=== PATIENT | male | born 1935 | race African-American/Black ===

== ENCOUNTER → 2016-08-29 | Outpatient (CLI) | payer OTHER, BC ==
[~2016-08-29] MED LIST: ACETAMINOPHEN325 M1 PO; ACTOS15 MG PO; ALBUTEROL2.5 MG/31 IH; ALLOPURINOL 10100 M1 PO; AMARYL2 MG PO; AMOXICILLIN 50500 M1 PO; AMOXICILLIN 50500 MG PO; APAP650 GT; ASA5UEC PO; ATENOLOL 50 MG50 M1 PO; ATENOLOL 50MG T50 M1 PO; AUGMENTIN 500-1 EACH PO; AUGMENTIN 875875 MG PO; AVELOX; AVELOX 400 MG400 MG PO; BREO ELLIPTA 11 EACH IH; BROVANA15 MCG/2 M IH; CARDIZEM SR 60M60 MG PO; CARDIZEM60 MG PO; CEFTIN 250250 MG/52 PO; CEFUROXIME250 MG PO; CIPROFLOXACIN500 M1 PO; CLARITIN10 MG PO; COLACE100 MG PO; COLCHICINE 0.60.6 M1 PO; COLCHICINE0.6 MG PO; COSOPT OCUMETER10 ML OP; COUMADIN 5 MG TA5 M1 PO; DEMADEX20 MG PO; DIGOXIN250 MCG PO; DOCUSATE CALCI240 MG PO; DOXYCYCLINE 10100 MG PO; DUONEB 2.5-0.5 M3 ML INH; FLOMAX PO; FLONASE16 GM NS; HYTRIN 5 M5 MG/1 CA1 PO; INDOMETHACIN 2525 MG PO; IRON325 PO; KLOR-CON20 MEQ PO; LASIX 40 MG TAB40 M2 PO; LEVAQUIN 250 M250 MG PO; LEVAQUIN 500 M500 M2 PO; LEVEMIR100 UNIT/1 SUBQ; LISINOPRIL20 MG PO; LISINOPRIL5 MG PO; LOPERAMIDE 2 MG2 M1 PO; LOPRESSOR25 PO; MEDROLDOSEPACK PO; MUCINEX600 MG PO; MUCUS RELIEF600 MG PO; NITROGLYCERIN0.4 MG SUBLING; NITROQUICK0.4 MG SL; NON-ASPIRIN PA325 MG PO; NORCO 5-325 TA1 EACH PO; OCUVITE TABLET1 EAC1 PO; OXYBUTYNIN 5 MG5 M1 PO; PRAVASTATIN SOD40 MG PO; PREDNISONE 10 M10 M1 PO; PREDNISONE 10 M10 MG PO; PREDNISONE 20 M20 MG PO; PREDNISONE10 MG PO; PREDNISONE50 MG PO; PROAIR HFA8.5 GM IH; PULMICORT FLEX90 MCG; PULMICORT0.25 MG/2 IH; SENEXON8.6 MG PO; SIMVASTATIN80 MG PO; SORINE 80 MG TA80 M1 PO; SPIRIVA INH; SYMBICORT160 MCG/4. INH; TRAVATAN Z2.5 ML OPHTHALMIC; UNICOMPLEX M TA1 TA1 PO; VERAPAMIL HCL240 M1 PO; VITAMIN D 5050000 I1 PO; VYTORIN 10-401 EACH PO; ZPAK PO; ZYVOX600 MG PO; torsemide PO
== END ==
LOC: CAT 09:29
DX: R91.1 Solitary pulmonary nodule (principal); R06.02 Shortness of breath; R06.00 Dyspnea, unspecified

== ENCOUNTER 2016-11-04 09:28 | Inpatient (IN) | payer OTHER, BC ==
[~2016-11-04] VITALS: Ht 170.2 cm; Wt 95.3 kg
--- NOTE | ~2016-11-04 | EKG ---
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: joceline cameron : 1935 Requested By: Thad Lemus Order Number: [id number] MD: Ganesh Hadley Measurements Intervals [place] Rate: 115 P: PA: QRS: -3 QRSD: 94 T: 102 QT: 361 QTc: 500 Interpretive Statements Atrial fibrillation Premature ventricular complexes Nonspecific repol abnormality, diffuse leads Compared to ECG 08/04/2016 16:56:36 Ventricular premature complex(es) now present Electronically Signed On 11-05-2016 8:28:58 CDT by Ganesh Hadley [email or web address] <ELECTRONICALLY SIGNED> By: Ganesh Hadley MD, [facility] 11/05/16 0828 9 9 Ganesh Hadley MD, [facility] /EPI
--- NOTE | ~2016-11-04 | HC ---
[facility] [place] [address] CONSULTATION Name: RICHAR CARTER Room #: 427-P [facility] IN M.R.#: [id number] Admission: 11/04/16 Attend Phys: Rey Blair DO Discharge: Date of : 37 Report #: [id number] THIS REPORT FOR: //name// CC: Rey Linton DATE OF SERVICE: 11/04/2016 ATTENDING PHYSICIAN: Dr. Blair. REASON FOR CONSULTATION: Chronic kidney disease. HISTORY OF PRESENT ILLNESS: The patient known to our service. I believe he has been seen in our office and has also been seen several times in the hospital. He has longstanding diabetes, hypertension, chronic kidney disease and a creatinine usually running 2 to 2.5 more or less. He presents with an acute gouty attack and some dry heaves. Creatinine is up to 2.8. PAST MEDICAL HISTORY: Longstanding diabetes, longstanding hypertension, chronic atrial fibrillation, previous CO, decreased left ventricular ejection fraction of 35% to 40%, for BPH has previously been on Flomax and may or may not have had prior proteinuria. HOME MEDICATIONS: As listed include diltiazem 90 mg three times daily, Levemir insulin, lisinopril 5 mg daily, metoprolol tartrate 50 mg b.i.d., pravastatin 40 mg daily, multiple vitamins. FAMILY HISTORY: Apparently has had brother on dialysis. SOCIAL HISTORY: Lives at home with family. No cigarettes or alcohol. REVIEW OF SYSTEMS: GENERAL: He has been doing fairly well. EYES: Vision has been off, but he cannot really be clear about where it is. ENT: Hearing okay. Denies mouth ulcers. ENDOCRINE: Positive for the diabetes. RESPIRATORY: Does get somewhat easily short-winded. He does have home oxygen as needed. CARDIOVASCULAR: Chronic atrial fibrillation, but no chest pain. GASTROINTESTINAL: Dry heaves, but no actual diarrhea or vomiting. GENITOURINARY: Stream fair. No dysuria. NEUROLOGIC: Denies seizure or stroke. SKELETAL: He has got a swollen, tender left knee. PHYSICAL EXAMINATION: GENERAL: Reasonably alert, well-appearing gentleman, giving a recent history. [facility] [address] [place] [address] CONSULTATION Name: RICHAR CARTER Room #: 427-P [facility] IN M.R.#: [id number] Admission: 11/04/16 Attend Phys: Rey Blair DO Discharge: Date of : 37 Report #: [id number] SKIN: Unremarkable. SKELETAL: Well-developed, well-nourished. EYES: Extraocular movements full. Vision intact. Mucous membranes slightly dry. NECK: Supple, no carotid bruits. CHEST: Shows clear breath sounds. HEART: Irregular. ABDOMEN: Soft and nontender. EXTREMITIES: Again showing swollen, tender left knee. LABORATORY DATA: The creatinine was up to 2.8. Creatinine when last in the hospital was 2.6 and that was 3 or 4 months. ASSESSMENT AND PLAN: 1. Chronic kidney disease. He has progressive chronic kidney disease and acute component possibly might require a little bit of IV fluids. I will check urinalysis, urine protein for completeness. I believe he is otherwise having workup in the past. 2. Acute arthritis of the left knee. He has had a history of gout previously this is likely gouty, he is being treated for that. 3. Diabetes mellitus. 4. Chronic atrial fibrillation. 5. Longstanding hypertension. <ELECTRONICALLY SIGNED> By: Raad Savage MD 11/06/16 0832 [id number] Norm Early MD /nt
--- NOTE | ~2016-11-04 | HC ---
[facility] [place] [address] CONSULTATION Name: RAULRICHAR MANE Room #: 427-P [facility] IN M.R.#: [id number] Admission: 11/04/16 Attend Phys: Rey Blair DO Discharge: Date of : 37 Report #: [id number] THIS REPORT FOR: //name// CC: Rey Linton CHIEF COMPLAINT: Left knee pain. HISTORY OF PRESENT ILLNESS: This is an 81-year-old gentleman who was admitted through the emergency room with severe knee and apparently toe pain. He has a history of gout and was subsequently admitted for management of this. He did receive some Solu-Medrol in the emergency room as well as was started on colchicine. He has improved somewhat; however, he continues to have significant issues. PAST MEDICAL HISTORY: Significant for diabetes, history of an RI in 1994, coronary artery disease with angioplasty in 1994, atrial fibrillation, vitamin D deficiency, gout, chronic respiratory failure and COPD, combined CHF, pulmonary and essential hypertension, chronic kidney disease, benign prostatic hypertrophy and glaucoma. SOCIAL HISTORY: Negative for tobacco use. Significant for alcohol use. REVIEW OF SYSTEMS: As above. PHYSICAL EXAMINATION: The left lower extremity notes limited motion through the left knee due to pain. He does have a slight effusion there. His left great toe has slightly limited motion, although he states much improved. There is no edema there. IMPRESSION: Gout, left knee. PLAN: The patient was provided with a Depo-Medrol injection, 2 mL of Depo-Medrol and 5 mL of lidocaine, under sterile conditions by my physician's assistant shift supervisor, Anais Forte. <ELECTRONICALLY SIGNED> By: Kash Gregory MD 11/07/16 1105 [id number] Kash Gregory MD /nt
[2016-11-04 09:28] VITALS: BP 158/87
[~2016-11-04 09:28] MED LIST changes: -CEFTIN 250250 MG/52 PO; -COLCHICINE0.6 MG PO
[2016-11-04 10:45] LABS: HEMOGLOBIN 11.4 gm/dL (14.0-18.0); MCH 31.8 pg (26.0-34.0); MCHC 34.6 g/dL (28.0-37.0); MCV 91.8 fL (80.0-100.0); PLATELET COUNT 194 thou/uL (150-400); RBC 3.59 mil/uL (4.50-6.00); RDW 15.1 % (10.5-14.5); WBC 11.9 thou/uL (4.0-11.0)
[2016-11-04 10:47] LABS: URINE BILIRUBIN NEGATIVE (Negative); URINE BLOOD 3+ (Negative); URINE COLOR YELLOW; URINE GLUCOSE-RANDOM* NEGATIVE (Negative); URINE KETONES NEGATIVE (Negative); URINE LEUKOCYTES-REFLEX TRACE (Negative); URINE PROTEIN (DIPSTICK) TRACE (Negative); URINE SPECIFIC GRAVITY 1.025 (1.003-1.035); URINE UROBILINOGEN 0.2 E.U./dl (0.2-1.0)
[2016-11-04 10:48] LABS: MANUAL DIFF YES
[2016-11-04 10:57] LABS: ANION GAP 3 mmol/L (7-16); BUN 49 mg/dL (7-18); CALCIUM 8.9 mg/dL (8.5-10.1); CHLORIDE 99 mmol/L (98-107); CO2 34 mmol/L (21-32); CREATININE 2.8 mg/dL (0.6-1.3); GLUCOSE 155 mg/dL (70-99); POTASSIUM 3.3 mmol/L (3.5-5.1); SODIUM 136 mmol/L (136-145)
[2016-11-04 11:00] LABS: INR 1.8; PROTIME 18.2 Seconds (9.3-11.4)
[2016-11-04 11:01] LABS: SQUAMOUS >10 Many /LPF (0-3)
[2016-11-04 11:02] LABS: HYALINE CASTS 0-3 Few /LPF (None Seen)
[2016-11-04 11:03] LABS: URINE WBC-REFLEX 6-15 Few /HPF (0-5)
[2016-11-04 11:04] LABS: CRYSTALS None Seen /LPF (None Seen); URINE RBC >20 Many /HPF (0-2)
[2016-11-04 11:07] LABS: ALBUMIN 3.4 g/dL (3.4-5.0); ALKALINE PHOSPHATASE 76 U/L (46-116); NT-PRO BRAIN NAT PEPTIDE 6878 pg/mL (<300); SGOT 12 U/L (15-37); SGPT 13 U/L (30-65); TOTAL BILIRUBIN 0.7 mg/dL (<0.1-1.0); TOTAL PROTEIN 8.3 g/dL (6.4-8.2); TROPONIN-I < 0.04 ng/mL (<0.04-0.07); URIC ACID* 12.4 mg/dL (2.6-7.2)
[2016-11-04 11:16] LABS: ABSOLUTE NEUTROPHILS 8.3 thou/uL (1.4-8.2); METAMYELOCYTES 1 %; TOTAL CELL COUNT 100
[2016-11-04 11:17] LABS: ANISOCYTOSIS SLIGHT
[2016-11-04 17:06] VITALS: BP 159/91
[2016-11-04 18:10] VITALS: BP 149/95
[2016-11-04 20:00] VITALS: BP 109/69; BP 147/93
[2016-11-05 04:52] VITALS: BP 153/111
[2016-11-05 05:32] LABS: HEMATOCRIT 34.2 % (42.0-52.0); HEMOGLOBIN 11.5 gm/dL (14.0-18.0); MCH 29.2 pg (26.0-34.0); MCHC 33.5 g/dL (28.0-37.0); MCV 87.1 fL (80.0-100.0); PLATELET COUNT 202 thou/uL (150-400); RBC 3.93 mil/uL (4.50-6.00); RDW 15.7 % (10.5-14.5); WBC 11.3 thou/uL (4.0-11.0)
[2016-11-05 05:57] LABS: MANUAL DIFF YES
[2016-11-05 06:21] LABS: CALCIUM 9.1 mg/dL (8.5-10.1); CREATININE 2.3 mg/dL (0.6-1.3); POTASSIUM 3.8 mmol/L (3.5-5.1)
[2016-11-05 06:55] LABS: TOTAL CELL COUNT 100
[2016-11-05 06:56] LABS: ABSOLUTE NEUTROPHILS 8.8 thou/uL (1.4-8.2)
[2016-11-05 07:14] VITALS: BP 165/99
[2016-11-05 12:28] LABS: % SATURATION 10 % (20-39); IRON 21 ug/dL (65-175); TIBC 220 ug/dL (250-450); UIBC 199 ug/dL
[2016-11-05 15:17] VITALS: BP 165/96
[2016-11-05 20:00] VITALS: BP 150/81
[2016-11-06 00:10] LABS: URINE CREATININE-RANDOM* 151.2 mg/dL (Not Estab.); URINE PROTEIN-RANDOM* 38.8 mg/dL (Not Estab.)
[2016-11-06 04:55] VITALS: BP 124/77
[2016-11-06 05:45] LABS: HEMATOCRIT 31.7 % (42.0-52.0); HEMOGLOBIN 10.9 gm/dL (14.0-18.0); MCH 31.6 pg (26.0-34.0); MCHC 34.4 g/dL (28.0-37.0); MCV 91.7 fL (80.0-100.0); RBC 3.46 mil/uL (4.50-6.00); RDW 15.3 % (10.5-14.5)
[2016-11-06 06:07] LABS: ALBUMIN 2.9 g/dL (3.4-5.0); CALCIUM 8.5 mg/dL (8.5-10.1); CREATININE 2.4 mg/dL (0.6-1.3); PHOSPHORUS 3.3 mg/dL (2.5-4.9)
[2016-11-06 07:09] VITALS: BP 157/93
[2016-11-06 15:48] VITALS: BP 134/67
[2016-11-06 20:00] VITALS: BP 146/74
[2016-11-07 04:00] VITALS: BP 134/83
[2016-11-07 05:41] LABS: ALBUMIN 2.7 g/dL (3.4-5.0); CALCIUM 8.2 mg/dL (8.5-10.1); CREATININE 2.3 mg/dL (0.6-1.3); PHOSPHORUS 3.4 mg/dL (2.5-4.9); POTASSIUM 3.6 mmol/L (3.5-5.1)
[2016-11-07 08:30] VITALS: BP 142/78
[2016-11-07] MEDS ORDERED: COLCHICINE0.6 MG PO (09:49)
[2016-11-07] MEDS ORDERED: CEFTIN 250250 MG/52 PO (09:50)
[2016-11-07 10:25] VITALS: BP 142/78
== END 2016-11-07 14:27 | disposition home health service (06) | DRG 553 ==
LOC: ER 09:28 → 4E 12:26 → EROBS 12:26 → 4E 17:10
PROVIDERS: Family Medicine; Hospitalist; Internal Medicine Nephrology; Physician Assistant
PROC: 3E0233Z Introduction of Anti-inflammatory into Muscle, Percutaneous Approach (ICD-10-PCS; principal; 2016-11-07)
DX: M10.9 Gout, unspecified (principal); N17.0 Acute kidney failure with tubular necrosis; J96.10 Chronic respiratory failure, unspecified whether with hypoxia or hypercapnia; I13.0 Hypertensive heart and chronic kidney disease with heart failure and stage 1 through stage 4 chronic kidney disease, or unspecified chronic kidney disease; I50.40 Unspecified combined systolic (congestive) and diastolic (congestive) heart failure; M13.162 Monoarthritis, not elsewhere classified, left knee; I25.10 Atherosclerotic heart disease of native coronary artery without angina pectoris; N18.3 Chronic kidney disease, stage 3 (moderate); E11.22 Type 2 diabetes mellitus with diabetic chronic kidney disease; I27.2 Other secondary pulmonary hypertension; N40.0 Benign prostatic hyperplasia without lower urinary tract symptoms; J44.9 Chronic obstructive pulmonary disease, unspecified; I48.2 Chronic atrial fibrillation; H40.9 Unspecified glaucoma; E55.9 Vitamin D deficiency, unspecified; Z79.899 Other long term (current) drug therapy; I25.2 Old myocardial infarction; Z95.5 Presence of coronary angioplasty implant and graft; Z87.891 Personal history of nicotine dependence; Z84.1 Family history of disorders of kidney and ureter; Z82.49 Family history of ischemic heart disease and other diseases of the circulatory system; Z80.9 Family history of malignant neoplasm, unspecified
CPT/HCPCS: 10783